=== PATIENT | female | born 1960 | race Two or more races ===

== ENCOUNTER → 2019-01-31 06:00 | Outpatient (CLI) | payer OTHER ==
[~2019-01-31 06:00] MED LIST: ACIDOPHILUS1 EAC1; FERROUS FUMARAT89 MG; JANUMET XR 50-1 EACH; SIMVASTATIN5 MG; ZESTRIL5 MG; ZIAC 2.5-6.251 EACH
== END | disposition home or self-care (01) ==
LOC: EKG 06:00 → CIR.AMB 02-02 13:16 → EDSTATUS 02-02 13:19 → SURH 02-05 13:22 → EDSTATUS 02-05 16:45
DX: C54.1 Malignant neoplasm of endometrium (principal); Z01.810 Encounter for preprocedural cardiovascular examination

== ENCOUNTER → 2019-04-10 | Outpatient (CLI) | payer OTHER ==
[~2019-04-10] MED LIST changes: +SYNTHROID125 MCG PO
== END | disposition home or self-care (01) ==
LOC: RAD 09:52
DX: C54.1 Malignant neoplasm of endometrium (principal); Z01.811 Encounter for preprocedural respiratory examination; D64.89 Other specified anemias; N39.0 Urinary tract infection, site not specified; R79.1 Abnormal coagulation profile

== ENCOUNTER → 2019-04-17 06:00 | Outpatient (CLI) | payer OTHER ==
[~2019-04-17] VITALS: Ht 152.4 cm; Wt 68.0 kg
== END | disposition home or self-care (01) ==
LOC: LAB 06:00 → O/R 04-18 09:30 → EDSTATUS 04-18 10:15
DX: C54.1 Malignant neoplasm of endometrium (principal); Z01.810 Encounter for preprocedural cardiovascular examination; Z01.811 Encounter for preprocedural respiratory examination; Z01.812 Encounter for preprocedural laboratory examination